=== PATIENT | female | born 1935 | race Caucasian/White ===

== ENCOUNTER 2018-01-28 09:25 | Emergency (ER) | payer MEDICARE, BC ==
[~2018-01-28] VITALS: Ht 167.6 cm; Wt 70.3 kg
[2018-01-28 09:32] VITALS: Ht 167.6 cm; Wt 70.3 kg
[2018-01-28] MEDS ORDERED: OMEPRAZOLE20 M1 (09:34)
[2018-01-28] MEDS ORDERED: NORVASC5 MG (09:34)
[2018-01-28] MEDS ORDERED: TOPROL XL50 MG (09:34)
[2018-01-28] MEDS ORDERED: HYDROCHLOROTHIA25 MG (09:34)
[2018-01-28] MEDS ORDERED: KLOR-CON 1010 MEQ (09:34)
[2018-01-28] MEDS ORDERED: ZOCOR40 MG (09:34)
[2018-01-28] MEDS ORDERED: LISINOPRIL2.5 MG (09:34)
[2018-01-28] MEDS ORDERED: BAYER CHEWABLE81 MG (09:35)
[2018-01-28 10:15] LABS: APPEARANCE HAZY (CLEAR); BILIRUBIN NEGATIVE (NEGATIVE); COLOR YELLOW (YELLOW); GLUCOSE NEGATIVE (NEGATIVE); KETONE NEGATIVE (NEGATIVE); NITRITE NEGATIVE (NEGATIVE); PROTEIN TRACE mg/dL (NEGATIVE); SPECIFIC GRAVITY 1.005 (1.005-1.020); UROBILINOGEN NORMAL (NORMAL)
[2018-01-28 10:16] LABS: EPITHELIAL CELLS 0-5 /hpf (0-5); RED CELLS - URINE 0-5 /hpf (0-5); WHITE CELLS - URINE 0-5 /hpf (0-5)
[2018-01-28 10:50] LABS: BASOPHILS 0.4 % (0-2); EOSINOPHILS 1.3 % (0-7); HEMATOCRIT 47.8 % (36.0-48.0); HEMOGLOBIN 16.2 g/dL (12-16); IMMATURE GRANULOCYTES 0.8 % (0-5); LYMPHOCYTES 15.8 % (15-50); MCH 29.7 pg (26.0-34.0); MCHC 33.9 g/dL (31.0-37.0); MCV 87.5 fL (80.0-100.0); MEAN PLATELET VOLUME 9.8 fL (7.4-10.4); MONOCYTES 7.5 % (2-11); NEUTROPHILS 74.2 % (40-80); PLATELET COUNT 306 10x3/uL (130-400); RBC 5.46 10x6/uL (4.00-5.40); RDW 14.3 % (11.5-14.5); WBC 8.9 10x3/uL (4.8-10.8)
[2018-01-28 11:00] LABS: ALBUMIN 3.9 g/dL (3.4-5.0); ANION GAP 18.2 mmol/L (8-16); BILIRUBIN - TOTAL 0.48 mg/dL (0.2-1.3); CALCIUM 9.4 mg/dL (8.5-10.1); CARBON DIOXIDE 24.4 mmol/L (21.0-32.0); CREATININE - SERUM 1.3 mg/dL (0.6-1.3); POTASSIUM - SERUM 4.6 mmol/L (3.5-5.1); PROTEIN - SERUM 7.4 g/dL (6.4-8.2)
[2018-01-28 13:53] VITALS: BP 179/89
== END 2018-01-28 13:55 | disposition home or self-care (01) ==
LOC: D.ER 09:25
PROVIDERS: Family Medicine
DX: R10.9 Unspecified abdominal pain (principal); M54.5 Low back pain; Z86.73 Personal history of transient ischemic attack (TIA), and cerebral infarction without residual deficits; I10 Essential (primary) hypertension

== ENCOUNTER → 2018-02-05 13:20 | Outpatient (CLI) | payer MEDICARE, BC ==
[~2018-02-05 13:20] MED LIST: BAYER CHEWABLE81 MG; HYDROCHLOROTHIA25 MG; KLOR-CON 1010 MEQ; LISINOPRIL2.5 MG; NORVASC5 MG; OMEPRAZOLE20 M1; TOPROL XL50 MG; ZOCOR40 MG
== END | disposition home or self-care (01) ==
LOC: D.MRI 13:20
DX: M54.16 Radiculopathy, lumbar region (principal)

== ENCOUNTER 2018-05-16 05:57 | Emergency (ER) | payer MEDICARE, BC ==
[~2018-05-16] VITALS: Ht 167.6 cm; Wt 72.7 kg
[2018-05-16 05:59] VITALS: Ht 167.6 cm; Wt 72.7 kg
[2018-05-16 07:05] LABS: BASOPHILS 0.2 % (0-2); EOSINOPHILS 0.7 % (0-7); HEMATOCRIT 45.7 % (36.0-48.0); HEMOGLOBIN 15.5 g/dL (12-16); IMMATURE GRANULOCYTES 0.2 % (0-5); LYMPHOCYTES 12.1 % (15-50); MCH 29.7 pg (26.0-34.0); MCHC 33.9 g/dL (31.0-37.0); MCV 87.5 fL (80.0-100.0); MEAN PLATELET VOLUME 9.5 fL (7.4-10.4); MONOCYTES 5.1 % (2-11); NEUTROPHILS 81.7 % (40-80); PLATELET COUNT 297 10x3/uL (130-400); RBC 5.22 10x6/uL (4.00-5.40); RDW 14.2 % (11.5-14.5); WBC 13.8 10x3/uL (4.8-10.8)
[2018-05-16 07:22] LABS: ANION GAP 19.5 mmol/L (8-16); BILIRUBIN - TOTAL 0.39 mg/dL (0.2-1.3); CALCIUM 9.7 mg/dL (8.5-10.1); CARBON DIOXIDE 21.9 mmol/L (21.0-32.0); CREATININE - SERUM 1.2 mg/dL (0.6-1.3); POTASSIUM - SERUM 3.4 mmol/L (3.5-5.1); PROTEIN - SERUM 7.7 g/dL (6.4-8.2)
[2018-05-16 08:17] LABS: APPEARANCE CLEAR (CLEAR); BILIRUBIN NEGATIVE (NEGATIVE); COLOR STRAW (YELLOW); GLUCOSE NEGATIVE (NEGATIVE); KETONE NEGATIVE (NEGATIVE); NITRITE NEGATIVE (NEGATIVE); PROTEIN NEGATIVE (NEGATIVE); UROBILINOGEN NORMAL (NORMAL)
[2018-05-16] MEDS ORDERED: MECLIZINE HCL25 MG PO (08:26)
[2018-05-16 08:46] VITALS: BP 154/73
== END 2018-05-16 08:47 | disposition home or self-care (01) ==
LOC: D.ER 05:57
PROVIDERS: Family Medicine
DX: R42 Dizziness and giddiness (principal); Z86.73 Personal history of transient ischemic attack (TIA), and cerebral infarction without residual deficits; I10 Essential (primary) hypertension

== ENCOUNTER 2019-06-26 10:00 | Outpatient (CLI) | payer MEDICARE, BC ==
[2018-05-16 05:59] VITALS: BMI 25.8
[~2019-06-26 10:00] MED LIST changes: +MECLIZINE HCL25 MG PO
== END 2019-06-26 11:00 | disposition home or self-care (01) ==
LOC: D.MAMMO 10:00
PROVIDERS: ATTEND Clinical Nurse Specialist Adult Health
DX: Z12.31 Encounter for screening mammogram for malignant neoplasm of breast (principal)

== ENCOUNTER 2020-07-17 14:15 | Outpatient (CLI) | payer MEDICARE, BC ==
[2018-05-16 05:59] VITALS: BMI 25.8
== END 2020-07-17 23:59 | disposition home or self-care (01) ==
LOC: D.MAMMO 14:15
PROVIDERS: ATTEND Family Medicine
DX: Z12.31 Encounter for screening mammogram for malignant neoplasm of breast (principal)